=== PATIENT | male | born 1960 | race Caucasian/White ===

== ENCOUNTER 2017-01-06 06:25 | Day surgery (SDC) | payer OTHER ==
[2017-01-06] VITALS (14 sets, daily range): BP systolic 98–147; BP diastolic 68–86; PULSE 54–97; RESP 13–19; Ht 177.8 cm; Wt 90.0 kg
[~2017-01-06] VITALS: Ht 177.8 cm; Wt 90.0 kg
--- NOTE | 2017-01-06 07:15 | HPN ---
Date/Time of Note Date/Time of Note DATE: 01/06/17 TIME: 07:15 Interval H&P Admission Note Pt. seen H&P reviewed: No system changes KWASI GARCIA MD Jan 06, 2017 07:15
[2017-01-06] MEDS ORDERED: CARV25TA79 PO (07:22)
[2017-01-06] MEDS ORDERED: FURO40TA4 PO (07:23)
[2017-01-06] MEDS ORDERED: LISI20TA11 PO (07:23)
[2017-01-06] MEDS ORDERED: LOVA20TA PO (07:24)
[2017-01-06] MEDS ORDERED: OLAN10TA7 PO (07:24)
[2017-01-06] MEDS ORDERED: PROPOFOL 20 ML ONE (08:53)
[2017-01-06] MEDS ORDERED: LIDOCAINE 2% (SDV) 5 ML INJ ONE (08:53)
[2017-01-06] MEDS ORDERED: CEFAZOLIN 1 GM INJ ONE (08:53)
[2017-01-06] MEDS ORDERED: MEPERIDINE 100 MG INJ ONE (08:54)
[2017-01-06] MEDS ORDERED: BUPIVACAINE 0.25% (STERILE-PAK) 30 ML INJ INJ ONE (09:00)
[2017-01-06] MEDS ORDERED: ATROPINE 1 MG/10 ML SYRINGE ONE (09:16)
[2017-01-06] MEDS ORDERED: EPHEDrine SULFATE 50 MG/5 ML SYG ONE (09:16)
--- NOTE | 2017-01-06 09:51 | OPR ---
Date/Time of Note Date/Time of Note DATE: 01/06/17 TIME: 09:46 Operative Report Procedure Date: Jan 06, 2017 Preoperative Diagnosis Umbilical hernia without obstruction Postoperative Diagnosis Umbilical hernia with incarcerated omentum Operation Performed 1. Repair umbilical hernia with 6.4 cm proceed circular patch 2. Partial omentectomy Surgeon Aquilino Garcia MD Anesthesia Type: general Anesthesiologist: CHRIS NIEVES MD Estimated Blood Loss: 10 - 50 ml's Transfusion Required: no Specimens Sac and partial omentum Grafts/Implants 6.4 cm proceed circular patch Tubes/Drains None Complications: no Pt Condition Post Procedure: stable Disposition: PACU Indications Symptomatic Operative\Procedure Findings Umbilical hernia with incarcerated omentum Procedure Description After satisfactory general anesthesia was achieved, a left circumumbilical incision was made and carried down to subcutaneous tissues. The sac was dissected from the umbilicus to the fascial defect. The sac at the fascial defect was divided with electrocautery. Was incarcerated omentum within the sac. The omentum was dissected from the sac which was removed and submitted. The omentum could not be reduced. The incarcerated omentum was divided over clamps and ligated with 0 Vicryl ties. The omentum was submitted. A 6.4 cm proceeds circular patch was placed below the fascial defect as an underlay. It was anchored to healthy fascia via its mesh straps utilizing interrupted 2-0 Novafil suture. The right edge of the fascial defect was approximated with a single suture of #2 Vicryl. Redundant mesh straps were excised and discarded. The resultant repair was a tension-free underlay repair. The wound was infiltrated with 20 cc of 0.25% plain Marcaine. The umbilicus was tacked to the midline with 3-0 Vicryl. Subcu was closed with interrupted 3-0 Vicryl. Skin was closed with donta. Sponge and needle counts were reported as correct 2 AQUILINO GARCIA MD Jan 06, 2017 09:50
[2017-01-06] MEDS ORDERED: OXYCODONE/ACETAMINOPHEN (5/325) TAB PO PRN ×4 (10:00→10:30)
[2017-01-06] MEDS ORDERED: morphine 2 MG INJ IV PRN (10:00)
[2017-01-06] MEDS ORDERED: ONDANSETRON 4 MG INJ IV PRN ×2 (10:00→10:30)
[2017-01-06] MEDS ORDERED: HYDROmorphONE (0.2 MG/ML) 10ML SYG IV PRN ×3 (10:30)
[2017-01-06] MEDS ORDERED: DIPHENHYDRAMINE 50 MG INJ IV PRN (10:30)
[2017-01-06] MEDS ORDERED: METOCLOPRAMIDE 10 MG INJ IV PRN (10:30)
[2017-01-06] MEDS ORDERED: hydrALAzine 20 MG INJ IV PRN (10:30)
[2017-01-06] MEDS ORDERED: MEPERIDINE 25 MG INJ IV PRN (10:30)
[2017-01-06] MEDS ORDERED: MIDAZOLAM 1 MG/ML 2 ML INJ IV PRN (10:30)
[2017-01-06] MEDS ORDERED: FENTAnyl 50 MCG/ML VIAL IV PRN ×3 (10:30)
[2017-01-06] MEDS ORDERED: LABETALOL HCL 20MG INJ IV PRN (10:30)
[2017-01-06] MEDS ORDERED: EPHEDrine SULFATE 50 MG/5 ML SYG IV PRN (10:30)
== END 2017-01-06 11:48 | disposition home or self-care (01) ==
LOC: SDS 06:25
PROVIDERS: ATTEND Surgery
DX: K42.9 Umbilical hernia without obstruction or gangrene (principal)
CPT/HCPCS: 49587; 88304; C1781; J0461; J0690; J2175; J2405; Z7512; Z7610